=== PATIENT | male | born 1950 | race Caucasian/White ===

== ENCOUNTER 2018-03-29 16:19 | Inpatient (IN) | payer MEDICARE ==
[~2018-03-29] VITALS: Ht 154.2 cm; Wt 97.5 kg
[2018-03-29 17:47] LABS: BASOPHILS % 0.4 % (0.0-1.0); EOSINOPHILS # (AUTO) 0.1 (0.0-0.4); EOSINOPHILS % 0.9 % (0.0-6.0); HEMATOCRIT 31.3 % (38.2-49.6); HEMOGLOBIN 10.3 g/dL (14.0-18.0); LYMPHOCYTES # (AUTO) 1.1 (1.0-3.2); LYMPHOCYTES % 14.3 % (18.0-39.1); MEAN CORPUSCULAR HEMOGLOBIN 33.8 pg (28-32); MEAN CORPUSCULAR HGB CONC 32.9 g/dL (31-35); MEAN CORPUSCULAR VOLUME 102.6 fL (81-99); MONOCYTES # (AUTO) 0.7 (0.2-0.8); MONOCYTES % 9.3 % (4.4-11.3); NEUTROPHILS # (AUTO) 5.9 (2.1-6.9); NEUTROPHILS % 73.6 % (38.7-80.0); PLATELET COUNT 206 x10e3/uL (140-360); RED BLOOD COUNT 3.05 x10e6/uL (4.3-5.7)
[2018-03-29 18:05] LABS: ALANINE AMINOTRANSFERASE 20 IU/L (0-55); ALBUMIN 3.6 g/dL (3.5-5.0); ALBUMIN/GLOBULIN RATIO 0.9 (0.8-2.0); ALKALINE PHOSPHATASE 72 IU/L (40-150); ANION GAP 14.3 mmol/L (8-16); BLOOD UREA NITROGEN 14 mg/dL (7-26); BUN/CREATININE RATIO 18 (6-25); CARBON DIOXIDE 27 mmol/L (22-29); CHLORIDE 102 mmol/L (98-107); CREATINE KINASE 143 IU/L (30-200); CREATININE, SERUM 0.79 mg/dL (0.72-1.25); EST GLOMERULAR FILTRATION RATE > 60 ML/MIN (60-); GLUCOSE 87 mg/dL (74-118); POTASSIUM 4.3 mmol/L (3.5-5.1); SODIUM 139 mmol/L (136-145)
[2018-03-29] MEDS ORDERED: ENOXAPARIN INJ 80 MG/0.8 ML SYR SC ONE (18:12)
--- NOTE | 2018-03-29 20:04 | Diagnostic Imaging Report ---
EXAM: CT Chest WITH contrast (PE Protocol) INDICATION: ^PE PROTOCOL ^[id number] ^1845 ^Y COMPARISON: None TECHNIQUE: Chest was scanned utilizing a multidetector helical scanner from the lung apex through the level of the diaphragm after administration of IV contrast. Thin section reconstructions were obtained with special concentration on the pulmonary arteries. Coronal and sagittal reformations were obtained. Dose modulation, iterative reconstruction, and/or weight based adjustment of the mA/kV was utilized to reduce the radiation dose to as low as reasonably achievable. Pulmonary embolism protocol was performed. IV CONTRAST: 100 mL of Isovue-370 COMPLICATIONS: None RADIATION DOSE: Total DLP: 550.64 mGy*cm Estimated effective dose: (DLP x 0.014 x size factor) mSv CTDIvol has been reviewed. It is below the limits set by the Radiation Protocol Committee (RPC). FINDINGS: LINES/ TUBES: None. LUNGS AND AIRWAYS: No filling defect is identified within the pulmonary arteries to the segmental level. Groundglass background of the lungs, representing mild interstitial edema. Pulmonary vascular congestion. Lingular scarring/atelectasis. Airways are normal. PLEURA: Small bilateral pleural effusions. HEART AND MEDIASTINUM: The thyroid gland is normal. Scattered subcentimeter mediastinal lymph nodes. There are bilateral enlarged hilar lymph nodes. No axillary lymphadenopathy. The heart is normal in size.. There is no pericardial effusion. . Main pulmonary artery measures 3.7 cm in diameter, suggestive of pulmonary hypertension. UPPER ABDOMEN: Unremarkable BONES: The visualized bony thorax is within normal limits. SOFT TISSUES: Unremarkable. IMPRESSION: No pulmonary emboli. Pulmonary vascular congestion, mild interstitial edema, and small bilateral pleural effusions. Signed by: Dr. Shahzad Justice MD on 03/29/2018 8:00 PM
[2018-03-29] MEDS ORDERED: ONDANSETRON HCL INJ 2 MG/ML VIAL IV PRN (21:45)
[2018-03-29] MEDS ORDERED: CEFADROXIL500 MG PO (21:53)
[2018-03-29] MEDS ORDERED: CELEBREX100 MG PO (21:53)
[2018-03-29] MEDS ORDERED: FLECAINIDE ACE100 MG PO (21:53)
[2018-03-29] MEDS ORDERED: ELIQUIS PO (21:53)
[2018-03-29] MEDS ORDERED: GABAPENTIN300 MG PO (21:53)
[2018-03-29] MEDS ORDERED: BYSTOLIC10 MG PO (21:54)
[2018-03-29] MEDS ORDERED: FUROSEMIDE INJ 10 MG/ML 4 ML VIAL IV ONE (22:00)
[2018-03-29] MEDS ORDERED: POTASSIUM CHLORIDE 20 MEQ TAB CR PO ONE (22:00)
--- OUTSIDE RECORDS SUMMARY | 2018-03-29 22:06 | XMS REPORT ---
[facility] Address Unknown Phone Unavailable Care Team Providers Care Line Palletizer Name Role Phone Jose De Jesus BOBBY Unavailable Unavailable Problems This patient has no known problems. Allergies, Adverse Reactions, Alerts This patient has no known allergies or adverse reactions. Medications This patient has no known medications. Results Test Description Test Time Test Comments Text Results Atomic Results Result Comments CT CHEST W 2018-03-29 19:56:00 [place] [address] Patient Name: ANTONIA LEWIS MR #: [id number] : 1950 Age/Sex: 68/M Req #: [id number] Adm Physician: Ordered by: LUCA BOBBY MD Report #: [id number] Location: ER Room/Bed: Procedure: [id number] CT/CT CHEST W Exam Date: 03/29/18 Exam Time: 1844 REPORT STATUS: Signed EXAM: CT Chest WITH contrast (PE Protocol) INDICATION: PE PROTOCOL [id number] Y COMPARISON: None TECHNIQUE: Chest was scanned utilizing a multidetector helical scanner from the lung apex through the level of the diaphragm after administration of IV contrast. Thin section reconstructions were obtained with special concentration on the pulmonary arteries. Coronal and sagittal reformations were obtained. Dose modulation, iterative reconstruction, and/or weight based adjustment of the mA/kV was utilized to reduce the radiation dose to as low as reasonably achievable. Pulmonary embolism protocol was performed. IV CONTRAST: 100 mL of Isovue-370 COMPLICATIONS: None RADIATION DOSE: Total DLP: 550.64 mGy*cm Estimated effective dose: (DLP x 0.014 x size factor) mSv CTDIvol has been reviewed. It is below the limits set by the Radiation Protocol Committee (RPC). FINDINGS: LINES/ TUBES: None. LUNGS AND AIRWAYS: No filling defect is identified within the pulmonary art eries to the segmental level. Groundglass background of the lungs, representing mild interstitial edema. Pulmonary vascular congestion. Lingular scarring/atelectasis. Airways are normal. PLEURA: Small bilateral pleural effusions. HEART AND MEDIASTINUM: The thyroid gland is normal. Scattered subcentimeter mediastinal lymph nodes. There are bilateral enlarged hilar lymph nodes. No axillary lymphadenopathy. The heart is normal in size.. There is no pericardial effusion. . Main pulmonary artery measures 3.7 cm in diameter, suggestive of pulmonary hypertension. UPPER ABDOMEN: Unremarkable BONES: The visualized bony thorax is within normal limits. SOFT TISSUES: Unremarkable. IMPRESSION: No pulmonary emboli. Pulmonary vascular congestion, mild interstitial edema, and small bilateral pleural effusions. Signed by: Dr. Shahzad Cisse MD on 03/29/2018 8:00 PM Dictated By: SHAHZAD CISSE MD 99 Transcribed By: MEREDITH on 03/29/181999 COPY TO: LUCA BOBBY MD
[2018-03-29] MEDS ORDERED: IOPAMIDOL 370 MG/ML 200 ML INFUS..BTL INJ ONE (22:18)
[2018-03-29] MEDS ORDERED: SODIUM CHLORIDE 0.9% 50ML 50 ML ONE (22:18)
[2018-03-29] MEDS: FAMOTIDINE 20 MG/2 ML VIAL IV SCH (22:43)
[2018-03-29 23:00] VITALS: BP 136/84
[2018-03-29 23:11] VITALS: BP 136/84
[2018-03-30] VITALS (7 sets, daily range): BP systolic 112–136; BP diastolic 59–87
[2018-03-30 01:42] LABS: CREATINE KINASE 156 IU/L (30-200)
[2018-03-30 06:10] LABS: BASOPHILS % 0.5 % (0.0-1.0); EOSINOPHILS # (AUTO) 0.1 (0.0-0.4); EOSINOPHILS % 1.1 % (0.0-6.0); HEMATOCRIT 32.9 % (38.2-49.6); HEMOGLOBIN 10.7 g/dL (14.0-18.0); LYMPHOCYTES # (AUTO) 1.2 (1.0-3.2); LYMPHOCYTES % 16.9 % (18.0-39.1); MEAN CORPUSCULAR HEMOGLOBIN 33.1 pg (28-32); MEAN CORPUSCULAR HGB CONC 32.5 g/dL (31-35); MEAN CORPUSCULAR VOLUME 101.9 fL (81-99); MONOCYTES # (AUTO) 0.7 (0.2-0.8); MONOCYTES % 9.3 % (4.4-11.3); NEUTROPHILS # (AUTO) 5.2 (2.1-6.9); NEUTROPHILS % 70.7 % (38.7-80.0); PLATELET COUNT 206 x10e3/uL (140-360); RED BLOOD COUNT 3.23 x10e6/uL (4.3-5.7); RED CELL DISTRIBUTION WIDTH 15.3 % (11.7-14.4)
[2018-03-30 06:36] LABS: ALANINE AMINOTRANSFERASE 20 IU/L (0-55); ALBUMIN 3.4 g/dL (3.5-5.0); ALBUMIN/GLOBULIN RATIO 0.9 (0.8-2.0); ALKALINE PHOSPHATASE 58 IU/L (40-150); ANION GAP 16.8 mmol/L (8-16); BLOOD UREA NITROGEN 11 mg/dL (7-26); BUN/CREATININE RATIO 14 (6-25); CALCIUM 9.9 mg/dL (8.4-10.2); CARBON DIOXIDE 24 mmol/L (22-29); CHLORIDE 101 mmol/L (98-107); CHOL/HDL RATIO 4.1 (3.9-4.7); CHOLESTEROL 159 MD/DL (0-199); CREATININE, SERUM 0.77 mg/dL (0.72-1.25); EST GLOMERULAR FILTRATION RATE > 60 ML/MIN (60-); GLUCOSE 84 mg/dL (74-118); HDL CHOLESTEROL 39 MG/DL (40-60); LDL CHOLESTEROL 95 MG/DL (60-130); POTASSIUM 3.8 mmol/L (3.5-5.1); SODIUM 138 mmol/L (136-145); TRIGLYCERIDES 124 MG/DL (0-149)
[2018-03-30] MEDS: ACETAMINOPHEN/CODEINE 300MG - 30MG TAB PO PRN ×3 (07:00→21:51)
[2018-03-30 07:06] LABS: CREATINE KINASE 152 IU/L (30-200)
[2018-03-30] MEDS: FUROSEMIDE INJ 10 MG/ML 4 ML VIAL IV SCH ×2 (09:21→21:14)
[2018-03-30] MEDS: NEBIVOLOL 10 MG TAB PO SCH (09:21)
[2018-03-30] MEDS: APIXABAN 5 MG TABLET PO SCH ×2 (09:22→17:54)
[2018-03-30] MEDS: FLECAINIDE ACETATE 100 MG TAB PO SCH ×2 (09:22→21:15)
[2018-03-30] MEDS: POTASSIUM CHLORIDE 10MEQ EA PO SCH ×2 (09:22→17:54)
[2018-03-30] MEDS: FAMOTIDINE 20 MG/2 ML VIAL IV SCH ×2 (09:27→21:17)
[2018-03-30 14:49] LABS: CREATINE KINASE 178 IU/L (30-200)
[2018-03-31] VITALS: BP 108/58
--- NOTE | 2018-03-31 01:47 | Consultation ---
DATE OF CONSULTATION: CARDIOLOGY CONSULTATION REASON FOR CONSULTATION: Heart failure. HISTORY OF PRESENT ILLNESS: This is a 68-year-old man with a history of atrial fibrillation on Eliquis for anticoagulation, chronic diastolic heart failure, hypertension, recent hip arthroplasty, who presented to the emergency department from his primary care provider due to worsening unilateral right lower extremity swelling, orthopnea, shortness of breath, and rapid ventricular response. Patient reports that he has had progressively worsening orthopnea which has prompted him to occasionally sleep in a seated position, symptoms are progressively worsening, worse with exertion, improved by rest. No other exacerbating or relieving factors. No chest pain. Upon arrival here, he was noted to be mildly volume overloaded with lower extremity swelling, right greater than left with CT of the chest showing pulmonary vascular congestion, mild interstitial edema, and small bilateral pleural effusions without any evidence of pulmonary emboli. REVIEW OF SYSTEMS: Twelve-point review of systems was conducted and is negative other than stated above in the HPI. PAST MEDICAL HISTORY: As stated above in HPI. PAST SURGICAL HISTORY: Total hip arthroplasty. PAST FAMILY HISTORY: No premature coronary artery disease or sudden cardiac . SOCIAL HISTORY: No illicit drug use, alcohol use or tobacco use. ALLERGIES: NO KNOWN DRUG ALLERGIES. MEDICATIONS: See medication reconciliation form. PHYSICAL EXAMINATION: VITAL SIGNS: Temperature is 96.5, heart rate is 114, blood pressure is 112/59, oxygen saturation 96% on room air, respirations are 18. GENERAL: He is well-appearing elderly man, lying comfortably in bed. HEENT: Head is normocephalic, atraumatic. Eyes: Extraocular movements are intact. Conjunctivae clear. NECK: No JVD. No bruits. CARDIOVASCULAR: Irregularly irregular. Tachycardic. No murmurs appreciated. LUNGS: Diminished breath sounds at bilateral bases. Scattered wheezes. ABDOMEN: Soft, nontender. EXTREMITIES: There is right lower extremity that is greater than left. NEUROLOGIC: No focal deficits noted. LABORATORY DATA: Reviewed. Hemoglobin 10.7. Creatinine of 0.77. Negative cardiac enzymes x3. BNP 342. CT angiogram of the chest showed no pulmonary embolism or thoracic aortic pathologies. Mild pulmonary edema and pleural effusion. Right lower extremity venous ultrasound showed no evidence of deep venous thrombosis. A 2D echocardiogram showed overall left ventricular systolic function was preserved with mild abdominal ascites. IMPRESSION: 1. Sljze-zo-[id number] diastolic heart failure. 2. Atrial fibrillation with rapid ventricular response. 3. Lower extremity edema. 4. Hypertension. RECOMMENDATIONS: Patient appears volume overloaded. Continue Lasix intravenously. Deep venous thrombosis was ruled out. Patient has no pulmonary embolism. Continue to monitor urinary outputs. Otherwise, continue anticoagulation with his Eliquis 5 mg p.o. b.i.d. He is on rate control medications consisting of nebivolol and flecainide, reasonable to continue these. We will give one dose of digoxin therapy. Job#: [id number] BETO
[2018-03-31 04:00] VITALS: BP 119/66
[2018-03-31 06:00] LABS: BASOPHILS % 0.5 % (0.0-1.0); EOSINOPHILS # (AUTO) 0.1 (0.0-0.4); EOSINOPHILS % 1.4 % (0.0-6.0); HEMATOCRIT 32.8 % (38.2-49.6); HEMOGLOBIN 10.7 g/dL (14.0-18.0); LYMPHOCYTES # (AUTO) 1.4 (1.0-3.2); LYMPHOCYTES % 21.8 % (18.0-39.1); MEAN CORPUSCULAR HEMOGLOBIN 33.1 pg (28-32); MEAN CORPUSCULAR HGB CONC 32.6 g/dL (31-35); MEAN CORPUSCULAR VOLUME 101.5 fL (81-99); MONOCYTES # (AUTO) 0.8 (0.2-0.8); MONOCYTES % 12.3 % (4.4-11.3); NEUTROPHILS # (AUTO) 4.1 (2.1-6.9); NEUTROPHILS % 62.5 % (38.7-80.0); PLATELET COUNT 197 x10e3/uL (140-360); RED BLOOD COUNT 3.23 x10e6/uL (4.3-5.7); RED CELL DISTRIBUTION WIDTH 15.2 % (11.7-14.4)
[2018-03-31 06:33] LABS: ALANINE AMINOTRANSFERASE 22 IU/L (0-55); ALBUMIN 3.4 g/dL (3.5-5.0); ALBUMIN/GLOBULIN RATIO 0.9 (0.8-2.0); ALKALINE PHOSPHATASE 62 IU/L (40-150); ANION GAP 11.7 mmol/L (8-16); BLOOD UREA NITROGEN 15 mg/dL (7-26); BUN/CREATININE RATIO 18 (6-25); CALCIUM 9.9 mg/dL (8.4-10.2); CARBON DIOXIDE 29 mmol/L (22-29); CHLORIDE 102 mmol/L (98-107); CREATININE, SERUM 0.85 mg/dL (0.72-1.25); EST GLOMERULAR FILTRATION RATE > 60 ML/MIN (60-); GLUCOSE 101 mg/dL (74-118); POTASSIUM 4.7 mmol/L (3.5-5.1); SODIUM 138 mmol/L (136-145)
[2018-03-31 07:55] VITALS: BP 119/72
[2018-03-31 08:00] VITALS: BP 119/72
[2018-03-31] MEDS: FUROSEMIDE INJ 10 MG/ML 4 ML VIAL IV SCH (08:07)
[2018-03-31] MEDS: POTASSIUM CHLORIDE 10MEQ EA PO SCH (08:07)
[2018-03-31] MEDS: APIXABAN 5 MG TABLET PO SCH (08:07)
[2018-03-31] MEDS: FLECAINIDE ACETATE 100 MG TAB PO SCH (08:07)
[2018-03-31] MEDS: ACETAMINOPHEN/CODEINE 300MG - 30MG TAB PO PRN (08:08)
[2018-03-31] MEDS: FAMOTIDINE 20 MG/2 ML VIAL IV SCH (08:08)
[2018-03-31] MEDS: NEBIVOLOL 10 MG TAB PO SCH (08:08)
[2018-03-31 11:35] VITALS: BP 97/54
[2018-03-31 12:30] VITALS: BP 118/69
[2018-03-31] MEDS ORDERED: POTASSIUM CHLO10 ME1 PO (13:22)
[2018-03-31] MEDS ORDERED: LASIX40 MG PO (13:22)
[2018-03-31] MEDS ORDERED: FLECAINIDE ACE100 MG PO (13:23)
--- NOTE | 2018-04-01 06:38 | History and Physical ---
REASON FOR ADMISSION: He is a 68-year-old male patient who has a recent right hip replacement, had presented to his PCP, Dr. Christel Martinez with a complaint of shortness of breath and leg swelling. HISTORY OF PRESENT ILLNESS: Mr. Nicolás Major is a 68-year-old male patient with a previous history of hypotension who had underwent right hip replacement and subsequently patient was having shortness of breath and right leg swelling, and patient was using SCD which was not working. The patient was sent to the emergency room for further treatment. ALLERGIES: NO KNOWN DRUG ALLERGIES. REVIEW OF SYSTEMS: Shortness of breath, leg swelling. OTHER SIGNIFICANT HISTORY: Patient has a major sleep disorder. Patient wakes up 6 to 8 times a night for either urination or leg jerking and weakness. PHYSICAL EXAMINATION VITAL SIGNS: Temperature 97, pulse rate 116, blood pressure 112/60, respirations 18, O2 sat 95%. HEENT: Normocephalic, atraumatic. NECK: No JVD. No lymphadenopathy. LUNGS: Bilaterally equal air entry. No rales. No rhonchi. HEART: S1, S2. Irregularly irregular. There is no murmur present. ABDOMEN: Soft. Bowel sounds are present. NEUROLOGICAL: No focal neurological deficit. EXTREMITIES: Right thigh ecchymosis present. Postop wound present. ADMITTING IMPRESSION AND DIAGNOSES 1. Atrial fibrillation with rapid heart rate. 2. Congestive heart failure secondary to the atrial fibrillation and diastolic dysfunction. 3. Right leg postop swelling. Patient is negative for pulmonary embolism and deep venous thrombosis and hypertension. Patient has very high likely possibility of obstructive sleep apnea. Patient has been evaluated by cardiology. Echocardiogram is done. Patient is already started on anticoagulation, Eliquis. Patient is getting Tambocor, flecainide for the rate control and Bystolic. Recommend pulmonary consultation for sleep apnea. Job#: [id number] ANURADHA
== END 2018-03-31 13:36 | disposition home or self-care (01) | DRG 308 ==
LOC: ER 16:19 → ERHOLD 21:44 → MED/SURG 22:47
PROVIDERS: ADMIT Internal Medicine; ATTEND Internal Medicine
DX: I48.0 Paroxysmal atrial fibrillation (principal); I50.33 Acute on chronic diastolic (congestive) heart failure; I11.0 Hypertensive heart disease with heart failure; Z96.641 Presence of right artificial hip joint; R60.0 Localized edema; G47.33 Obstructive sleep apnea (adult) (pediatric); Z79.01 Long term (current) use of anticoagulants
CPT/HCPCS: 36415; 71260; 80053; 80061; 82550; 82553; 83880; 84484; 85025; 93306; 93971; 99284; J1940; Q9967